=== PATIENT | male | born 1965 | race Caucasian/White ===

== ENCOUNTER 2022-12-21 08:01 | Emergency (ER) | payer BC ==
[2022-12-21] MEDS ORDERED: BABY ASPIRIN 81 MG CHEW PO ONE (10:49)
--- NOTE | 2022-12-21 10:49 | ERPHSYRPT ---
- History of Present Illness Time Seen by Provider: 12/21/22 10:40 Historian: patient Exam Limitations: no limitations Patient Subjective Stated Complaint: Pt was in [facility] doing a PFT study when he became tachycardic and then began having chest pain Triage Nursing Assessment: Pt was brought over from [facility] on Dr. Garg's orders because he did not want him to drive home after having chest pain, hypertensive, denies pain at this time, face is flushed, pulses normal, pt's left arm was feeling numb and tingly but states that it is not as bad now, no edema, no difficulties with breathing, doesn't appear to be in any distress Physician History: This is a 57-year-old white male patient of nurse practitioner Pratik who was seen by his nurse practitioner last week. At that visit, the patient was having some wheezing and mild coughing and therefore the patient was referred to the coat tailor and respiratory clinic. Today, the patient was undergoing pulmonary function testing and during the clinic study, the patient became tachycardic in the 120s, a twelve-lead EKG was performed there and there were no acute ischemic changes but there was new tachycardia present. In addition, the patient was having some substernal, central chest pain that was mild but present and it radiated into his left shoulder and arm. Patient was sent from the clinic to the emergency department. Upon triage in the emergency department, the patient states that his chest pain and left shoulder pain have now been resolved. I obtained and reviewed old labs that were performed on 12/18/2022. At that time his white blood cell count was 11.3 and his hemoglobin was 14.6. His CMP did not show any acute or concerning findings. Patient has not had a cough or fever. He has no abdominal pain. He has not had any nausea or vomiting or diarrhea Timing/Duration: today Activities at Onset: other (Undergoing pulmonary function test at the respiratory clinic) Quality: aching Location: substernal, central Chest Pain Radiation: arm Severity of Pain-Max: mild (Left) Severity of Pain-Current: none Modifying Factors: Improves With: nothing Associated Symptoms: denies symptoms Prior Chest Pain/Cardiac Workup: no prior chest pain, no prior cardiac workup Nitro Today/Relief: no nitro taken today Aspirin Treatment Today: no aspirin today Allergies/Adverse Reactions: No Known Drug Allergies Allergy (Verified 12/21/22 10:48) Home Medications: Unobtainable 12/21/22 [History] Hx Influenza Vaccination/Date Given: Yes Hx Pneumococcal Vaccination/Date Given: No Travel Risk - International Travel Have you traveled outside of the country in past 3 weeks: No - Coronavirus Screening Are you exhibiting any of the following symptoms?: No Close contact with a COVID-19 positive Pt in past 14-21 Days: No - Vaccine Status Have you recieved a Covid-19 vaccination: Yes Converter Operator: Moderna - Vaccination Dates Date of 2cond Vaccination (if applicable): 2020 - Review of Systems Constitutional: No Symptoms Eyes: No Symptoms Ears, Nose, & Throat: No Symptoms Respiratory: Cough, Wheezing Cardiac: Chest Pain Abdominal/Gastrointestinal: No Symptoms Genitourinary Symptoms: No Symptoms Musculoskeletal: No Symptoms Skin: No Symptoms Neurological: No Symptoms Psychological: No Symptoms Endocrine: No Symptoms Hematologic/Lymphatic: No Symptoms Immunological/Allergic: No Symptoms All Other Systems: Reviewed and Negative - Past Medical History Pertinent Past Medical History: Yes Cardiac History: High Cholesterol, Hypertension - Past Surgical History Past Surgical History: Yes Other Surgical History: lasik - Social History Smoking Status: Never smoker Exposure to second hand smoke: No Drug Use: none Patient Lives Alone: No - Nursing Vital Signs Nursing Vital Signs: Initial Vital Signs Temperature 98.4 F 12/21/22 10:37 Pulse Rate 93 H 12/21/22 10:37 Respiratory Rate 21 12/21/22 10:37 Blood Pressure 151/95 12/21/22 10:37 O2 Sat by Pulse Oximetry 94 L 12/21/22 10:37 Pain Scale Pain Intensity 0 - Physical Exam General Appearance: no apparent distress, alert, anxiety Eye Exam: PERRL/EOMI, eyes nml inspection Ears, Nose, Throat Exam: normal ENT inspection, moist mucous membranes Neck Exam: normal inspection, non-tender, supple, full range of motion Respiratory Exam: normal breath sounds, chest tenderness, lungs clear, airway intact, No respiratory distress Cardiovascular Exam: regular rate/rhythm, normal heart sounds, normal peripheral pulses Gastrointestinal/Abdomen Exam: soft, normal bowel sounds, No tenderness Rectal Exam: not done Back Exam: normal inspection, normal range of motion, No CVA tenderness, No vertebral tenderness Extremity Exam: normal inspection, normal range of motion, pelvis stable Neurologic Exam: alert, oriented x 3, cooperative, coil finisher II-XII nml as tested, normal mood/affect, nml cerebellar function, nml station & gait, sensation nml Skin Exam: normal color, warm, dry Lymphatic Exam: adenopathy SpO2 Interpretation: borderline oxygenation SpO2: 94 O2 Delivery: Room Air - Course Nursing assessment & vital signs reviewed: Yes EKG Interpreted by Me: RATE (95), Sinus Rhythm, NORMAL AXIS, NORMAL INTERVALS, NORMAL QRS, NORMAL ST-T, Other (This twelve-lead EKG was interpreted by me. There are no acute ischemic changes.) Ordered Tests: Active Orders 24 hr Category Date Time Status EKG-ER Only STAT Care 12/21/22 10:49 Active IV Insertion STAT Care 12/21/22 10:49 Active Pulse Oximetry (ED) STAT Care 12/21/22 10:49 Active CHEST 1 VIEW (PORTABLE) Stat Exams 12/21/22 10:49 Completed CBC W DIFF Stat Lab 12/21/22 10:40 Completed CMP Stat Lab 12/21/22 10:40 Completed D-DIMER QUANTITATIVE Stat Lab 12/21/22 10:40 Completed NT PRO BNP Stat Lab 12/21/22 10:40 Completed TROPONIN Q4H Lab 12/21/22 10:40 Completed TROPONIN Q4H Lab 12/21/22 15:00 Ordered TROPONIN Q4H Lab 12/21/22 19:00 Ordered PFT ONCE RT 12/21/22 08:24 Completed EKL-Prcnuqkuf-KP ONCE RT 12/21/22 08:24 Completed PFT-[place] ONCE RT 12/21/22 08:24 Completed Medication Summary Discontinued Medications Generic Name Dose Route Start Last Admin Trade Name Freq PRN Reason Stop Dose Admin Aspirin 324 mg 12/21/22 10:49 12/21/22 10:55 Aspirin 81 Mg Tab.Chew PO 12/21/22 10:50 324 mg STAT ONE Administration Lab/Rad Data: Laboratory Result Diagrams 12/21/22 10:40 12/21/22 10:40 Laboratory Results 12/21/22 12/21/22 12/21/22 Range/Units 10:40 10:40 10:40 WBC (4.0-10.5) x10^3/uL RBC (4.1-5.6) x10^6/uL Hgb (12.5-18.0) g/dL Hct (42-50) % MCV (78-100) fL MCH (26-32) pg MCHC (32-36) g/dL RDW (11.5-14.0) % Plt Count (150-450) x10^3/uL MPV (7.5-11.0) fL Gran % (36.0-66.0) % Immature Gran % (Auto) (0.00-0.4) % Nucleat RBC Rel Count (0.00-0.1) % Eos # (Auto) (0-0.5) x10^3/uL Immature Gran # (Auto) (0.00-0.03) x10^3u/L Absolute Lymphs (auto) (1.0-4.6) x10^3/uL Absolute Monos (auto) (0.0-1.3) x10^3/uL Absolute Nucleated RBC (0.00-0.01) x10^3u/L Lymphocytes % (24.0-44.0) % Monocytes % (0.0-12.0) % Eosinophils % (0.00-5.0) % Basophils % (0.0-0.4) % Absolute Granulocytes (1.4-6.9) x10^3/uL Basophils # (0-0.4) x10^3/uL D-Dimer 0.25 (0.0-0.50) mg/L Sodium 139 (137-145) mmol/L Potassium 3.9 (3.5-5.1) mmol/L Chloride 104 (98-107) mmol/L Carbon Dioxide 25 (22-30) mmol/L Anion Gap 14.7 (5-15) MEQ/L BUN 14 (9-20) mg/dL Creatinine 0.89 (0.66-1.25) mg/dL Estimated GFR > 60.0 ML/MIN Glucose 119 H (74-106) mg/dL Calcium 8.7 (8.4-10.2) mg/dL Total Bilirubin 0.50 (0.2-1.3) mg/dL AST 32 (17-59) U/L ALT 33 (0-50) U/L Alkaline Phosphatase 78 (38-126) U/L Troponin I < 0.012 (0.000-0.034) ng/mL NT-Pro-B Natriuret Pep 65.0 (0-900) pg/mL Serum Total Protein 6.9 (6.3-8.2) g/dL Albumin 4.1 (3.5-5.0) g/dL 12/21/22 Range/Units 10:40 WBC 7.9 (4.0-10.5) x10^3/uL RBC 5.39 (4.1-5.6) x10^6/uL Hgb 14.4 (12.5-18.0) g/dL Hct 44.9 (42-50) % MCV 83.3 (78-100) fL MCH 26.7 (26-32) pg MCHC 32.1 (32-36) g/dL RDW 12.8 (11.5-14.0) % Plt Count 387 (150-450) x10^3/uL MPV 10.1 (7.5-11.0) fL Gran % 75.2 H (36.0-66.0) % Immature Gran % (Auto) 0.4 (0.00-0.4) % Nucleat RBC Rel Count 0.0 (0.00-0.1) % Eos # (Auto) 0.25 (0-0.5) x10^3/uL Immature Gran # (Auto) 0.03 (0.00-0.03) x10^3u/L Absolute Lymphs (auto) 0.85 L (1.0-4.6) x10^3/uL Absolute Monos (auto) 0.78 (0.0-1.3) x10^3/uL Absolute Nucleated RBC 0.00 (0.00-0.01) x10^3u/L Lymphocytes % 10.8 L (24.0-44.0) % Monocytes % 9.9 (0.0-12.0) % Eosinophils % 3.2 (0.00-5.0) % Basophils % 0.5 (0.0-0.4) % Absolute Granulocytes 5.93 (1.4-6.9) x10^3/uL Basophils # 0.04 (0-0.4) x10^3/uL D-Dimer (0.0-0.50) mg/L Sodium (137-145) mmol/L Potassium (3.5-5.1) mmol/L Chloride (98-107) mmol/L Carbon Dioxide (22-30) mmol/L Anion Gap (5-15) MEQ/L BUN (9-20) mg/dL Creatinine (0.66-1.25) mg/dL Estimated GFR ML/MIN Glucose (74-106) mg/dL Calcium (8.4-10.2) mg/dL Total Bilirubin (0.2-1.3) mg/dL AST (17-59) U/L ALT (0-50) U/L Alkaline Phosphatase (38-126) U/L Troponin I (0.000-0.034) ng/mL NT-Pro-B Natriuret Pep (0-900) pg/mL Serum Total Protein (6.3-8.2) g/dL Albumin (3.5-5.0) g/dL - Progress Progress: improved, re-examined Air Movement: good Progress Note: 12/21/22 12:41 Chest x-ray shows no acute cardiopulmonary process. The radiology report was read by me 12/21/22 12:48 Medical decision making: This patient's medical issue is of moderate complexity. This is based on the patient's direct history, additional history provided by respiratory therapy, physical examination and review of twelve-lead EKGs both old and new. I interpreted the new EKG myself. Based on the above I ordered repeat twelve-lead EKG, blood work and chest x-ray. I reviewed the results of each of these studies. Based on the results of the studies, the patient has noncardiac chest pain and no acute cardiopulmonary issues at this time. I formulated the discharge plan and I discussed this with the patient. Patient is to follow-up with his primary care provider. He is to call today to make arrangements for follow-up appointment and referral to a assembling motor builder if indicated. He is to follow the instructions of his coat tailor. Blood Culture(s) Obtained: No Antibiotics given: No Counseled pt/family regarding: lab results, diagnosis, need for follow-up, rad results - Departure Departure Disposition: Home Clinical Impression: Non-cardiac chest pain Condition: Stable Critical Care Time: No Referrals: AISHWARYA MUNOZ NP [Primary Care Provider] - Follow up/PCP as directed Additional Instructions: Take all your medication as prescribed. Call your primary care provider today to make arranges for follow-up appointment and referral to a assembling motor builder if indicated. Follow your instructions of your coat tailor.
--- NOTE | 2022-12-21 11:14 | PFT ---
DATE OF STUDY: 12/21/2022 INDICATION: Evaluation of shortness of breath for the past six months. IMPRESSION: 1) Spirometry shows mild obstructive pattern predominantly involving small airways. 2) A post-bronchodilator spirometry shows statistically significant improvement in FEV1 consistent with bronchodilator reversibility. 3) Lung volumes are within normal limits. 4) Diffusion capacity is preserved. 5) Flow volume loop shows mild obstructive pattern. The above pulmonary function test may suggest mild obstruction i.e. bronchial asthma. Clinical correlation is advised. ADDENDUM: Upon completion of this test the patient reported chest discomfort with tachycardia with heart rate in 120's. He was observed for some time with improvement in tachycardia although he did drop his oxygen saturation to 94%. In view of patient's age and the above symptoms, he was referred to the emergency room for additional evaluation.
[2022-12-21 11:20] VITALS: O2SAT 94
--- NOTE | 2022-12-21 11:23 | XRAY ---
Indication: Chest pain, short of breath, and wheezing. Comparison: September 01, 2022 Portable chest again demonstrates normal heart and lungs with incidental calcified granulomas. Bony thorax intact again with osteopenia and mild degenerative changes. No new/acute findings.
[2022-12-21 11:28] LABS: Absolute Neutrophil Ct (ANC) 5.93 x10^3/uL (1.4-6.9); BASOPHIL % 0.5 % (0.0-0.4); Basophil (Absolute #) 0.04 x10^3/uL (0-0.4); Eosinophil % 3.2 % (0.00-5.0); Eosinophil (Absolute #) 0.25 x10^3/uL (0-0.5); Hematocrit 44.9 % (42-50); Hemoglobin 14.4 g/dL (12.5-18.0); IMMATURE GRAN # 0.03 x10^3u/L (0.00-0.03); IMMATURE GRAN % 0.4 % (0.00-0.4); Lymphocyte (Absolute #) 0.85 x10^3/uL (1.0-4.6); Lymphocytes % 10.8 % (24.0-44.0); Mean Cell Volume 83.3 fL (78-100); Mean Corpuscular Hemoglobin 26.7 pg (26-32); Mean Corpuscular Hgb Concent. 32.1 g/dL (32-36); Mean Platelet Volume 10.1 fL (7.5-11.0); Monocyte (Absolute #) 0.78 x10^3/uL (0.0-1.3); Monocytes % 9.9 % (0.0-12.0); Neutrophil % 75.2 % (36.0-66.0); Platelet Count 387 x10^3/uL (150-450); Red Blood Count 5.39 x10^6/uL (4.1-5.6); Red Cell Distribution Width 12.8 % (11.5-14.0); White Blood Count 7.9 x10^3/uL (4.0-10.5)
[2022-12-21 11:38] LABS: ALBUMIN 4.1 g/dL (3.5-5.0); ALKALINE PHOSPHATASE 78 U/L (38-126); ANION GAP 14.7 MEQ/L (5-15); BLOOD UREA NITROGEN 14 mg/dL (9-20); CHLORIDE 104 mmol/L (98-107); Calcium 8.7 mg/dL (8.4-10.2); Carbon Dioxide 25 mmol/L (22-30); Creatinine 1 0.89 mg/dL (0.66-1.25); EST GLOMERULAR FILTRATION RATE > 60.0 ML/MIN; Glucose 119 mg/dL (74-106); Potassium 3.9 mmol/L (3.5-5.1); SGOT/AST 32 U/L (17-59); SGPT/ALT 33 U/L (0-50); SODIUM 139 mmol/L (137-145); Total Protein 6.9 g/dL (6.3-8.2)
[2022-12-21 12:56] VITALS: BP 151/88; PULSE 88
== END 2022-12-21 13:17 | disposition home or self-care (01) ==
LOC: ED 08:01 → RT 08:01 → EDSTATUS 10:18 → ED 13:17
DX: R07.89 Other chest pain (principal); R00.0 Tachycardia, unspecified; E78.5 Hyperlipidemia, unspecified; I10 Essential (primary) hypertension; R06.09 Other forms of dyspnea
CPT/HCPCS: 36000; 36415; 71045; 80053; 83880; 84484; 85025; 85379; 93005; 94060; 94727; 94729; 94760; 99284; A9270-GY

== ENCOUNTER 2023-03-19 05:46 | Day surgery (SDC) | payer BC ==
[2023-03-19] MEDS ORDERED: Lactated Ringers 1,000 ML IV ONE (06:47)
[2023-03-19] MEDS ORDERED: Lactated Ringers 1,000 ML IV SCH (07:00)
[2023-03-19] MEDS ORDERED: Versed 2 MG/2 ML Injection ONE (07:27)
[2023-03-19] MEDS ORDERED: DIPRIVAN 200 MG/20 ML IV ONE ×2 (07:27→07:41)
[2023-03-19 08:30] VITALS: O2SAT 95
[2023-03-19 08:40] VITALS: BP 147/98; PULSE 73
--- NOTE | 2023-03-19 09:18 | OP ---
SURGERY DATE/TIME: 03/19/2023 8384 PREOPERATIVE DIAGNOSIS: Screening exam. POSTOPERATIVE DIAGNOSIS: Normal colon with the exception of a few scattered diverticula. PROCEDURE: Colonoscopy. SURGEON: Dr. Mederos. ANESTHESIA: MAC. Medications given by anesthesia department. HISTORY: The patient is a 57-year-old white male presenting now for screening colonoscopy. He was appraised of the risks of the procedure including the risk of perforation, phlebitis, untoward reaction to medication, bleeding and missed lesions. The patient verbalized his understanding and desired to have the procedure performed. DESCRIPTION OF PROCEDURE: The patient was given the medications by the anesthesia department. He had continuous pulse oximetry, ECG monitoring, intermittent blood pressure monitoring during the examination. He was placed in the left lateral decubitus position. A digital rectal examination was performed and revealed normal anal sphincter tone and no masses and normal prostate. The flexible Olympus pediatric colonoscope was used to intubate the rectum. A view of the colon was developed sequentially to the cecum. Upon insertion and withdrawal, including a retroflex view in the rectum was noted a few scattered colonic diverticula otherwise no polyps or colitis is noted. The scope was removed from the patient who tolerated the procedure well and was sent back to OP recovery in good condition. The prep was noted to be fair bordering on poor.
== END 2023-03-19 08:45 | disposition home or self-care (01) ==
LOC: SDC 05:46
PROVIDERS: ATTEND Family Medicine
DX: Z12.11 Encounter for screening for malignant neoplasm of colon (principal); K57.30 Diverticulosis of large intestine without perforation or abscess without bleeding; E11.9 Type 2 diabetes mellitus without complications
CPT/HCPCS: 82947; J2250; J2704